=== PATIENT | male | born 1955 | race Hispanic/Latino ===

== ENCOUNTER 2022-02-03 08:36 | Day surgery (SDC) | payer OTHER ==
[2022-02-02 13:52] LABS: BASOPHILS % (AUTO) 0.2 % (0.0-5.0); EOSINOPHILS % (AUTO) 1.2 % (0.0-8.0); HEMATOCRIT 42.3 % (42-54); LYMPHOCYTES % (AUTO) 27.4 % (21.0-51.0); MEAN CORPUSCULAR HGB CONC 34.3 g/dL (32.0-36.0); MEAN CORPUSCULAR VOLUME 87.6 fL (79-99); MONOCYTES % (AUTO) 7.8 % (3.0-13.0); NEUTROPHILS % (AUTO) 63.1 % (40.0-77.0); PLATELET COUNT (AUTO) 195 K/uL (130-400); RED BLOOD CELL COUNT(AUTO) 4.83 MIL/uL (4.50-6.20); RED CELL DISTRIBUTION WIDTH 12.9 % (11.0-15.5); WHITE BLOOD COUNT (AUTO) 9.6 K/uL (4.8-10.8)
[2022-02-02 13:56] LABS: CREATININE 1.1 mg/dL (0.5-1.5); POTASSIUM 3.8 mmol/L (3.5-5.1)
[2022-02-02 14:06] VITALS: BP 180/89
[2022-02-03] VITALS (12 sets, daily range): BP systolic 115–182; BP diastolic 64–104
[~2022-02-03] VITALS: Ht 182.9 cm; Wt 110.9 kg
[~2022-02-03 08:36] MED LIST: LOSA25TA41 PO
[2022-02-03] MEDS ORDERED: CEFAZOLIN SODIUM 1 GM VIAL ONE (08:56)
[2022-02-03] MEDS ORDERED: LACTATED RINGERS 1000ML 1,000 ML IV ONE (08:56)
[2022-02-03] MEDS ORDERED: LOSA100T58 PO (09:21)
[2022-02-03] MEDS ORDERED: ATOR40TA71 PO (09:21)
[2022-02-03] MEDS ORDERED: PROPOFOL 10 MG/ML 20ML VIAL IV ONE (11:00)
[2022-02-03] MEDS ORDERED: MIDAZOLAM HCL 1 MG/ML 2ML VIAL ONE (11:00)
[2022-02-03] MEDS ORDERED: SUCCINYLCHOLINE 200MG/10ML SYR ONE (11:00)
[2022-02-03] MEDS ORDERED: CEFAZOLIN SODIUM 2 GM VIAL IV ONE (11:00)
[2022-02-03] MEDS ORDERED: FENTANYL CITRATE PF 50 MCG/1 ML 2ML VIAL ONE (11:00)
[2022-02-03] MEDS ORDERED: ROCURONIUM 10MG/1ML SYR 10 MG/ML ML ONE (11:00)
[2022-02-03] MEDS ORDERED: EPHEDRINE SULFATE 50 MG/ML AMPULE ONE (11:46)
== END 2022-02-03 14:05 | disposition home or self-care (01) ==
LOC: DAH 08:36
PROVIDERS: ATTEND Surgery
DX: L72.3 Sebaceous cyst (principal); L72.0 Epidermal cyst; E66.9 Obesity, unspecified; I10 Essential (primary) hypertension; Z82.49 Family history of ischemic heart disease and other diseases of the circulatory system; Z98.890 Other specified postprocedural states; Z68.34 Body mass index [BMI] 34.0-34.9, adult
CPT/HCPCS: 93005; 87426; 80048; 85025; 36415; 11406; J0690 ×2; J7120; J3010; J3490; J2250; J2704; A4215; A4223; A4222; A4221; A4663; A4600; J0330